=== PATIENT | male | born 1995 | race Caucasian/White ===

== ENCOUNTER 2020-02-19 11:34 | Emergency (ER) | payer OTHER, SELFPAY ==
[2020-02-19 12:11] VITALS: BP 119/62; PULSE 90; RESP 16; TEMP 36.4; O2SAT 100
--- NOTE | 2020-02-19 12:34 | ED.MALEGU ---
HPI - Male Genitourinary General Chief complaint: Urogenital-Male Stated complaint: STD Time Seen by Provider: 02/19/20 12:35 Source: patient and RN notes reviewed Mode of arrival: ambulatory Limitations: no limitations History of Present Illness HPI Narrative: This is a 24 years old male presents to the office for a concern of STD. Symptoms began yesterday with penile discharge, described as white thick and foul odor. He is sexually active with numerous partner. Denies history of STD in the past. Report unprotected sex. Related Data Allergies Allergy/AdvReac Type Severity Reaction Status Date / Time No Known Allergies Allergy Unknown Unverified 07/22/15 11:37 Review of Systems Review of Systems: Narrative: CONSTITUTIONAL: Denies fever or bodyaches ENT: Denies congestion CARDIOVASCULAR: Denies chest pain RESPIRATORY: Denies dyspnea GASTROINTESTINAL: Denies abdominal pain, nausea, vomiting GENITOURINARY: Denies genital lesions SKIN: Denies rash MUSCULOSKELETAL: Denies acute back pain/joints pain NEUROLOGIC: Denies lightheaded/numbness All other systems reviewed are negative, except as documented in HPI. [facility] Family History Family History Sibling Family history of mental disorder Patient's sister is in good health Mother Patient's mother is in good health Father Patient's father is in good health Social History Social History Smoking status: Never smoker Alcohol intake: never Gender identity (if verbalized by the patient): Male Comments At time of signature, I agree with nursing past medical, surgical, social and family history. There is no relevant family history pertinent to the presenting complaint. Exam Narrative: Exam Narrative: GENERAL: This is a well-nourished, well-developed patient, in no apparent distress. CARDIOVASCULAR: Regular rate and rhythm without murmurs, gallops, or rubs. RESPIRATORY: Clear to auscultation. Breath sounds equal bilaterally. No wheezes, rales, or rhonchi. GASTROINTESTINAL: Abdomen soft, non-tender, nondistended. Bowel sounds are active. No hepato-splenomegaly, or palpable masses. No guarding. SKIN: warm, intact with no suspicious lesions or rash, good texture and turgor. NEURO: awake, alert, and oriented to person, place and time. There were no obvious focal neurologic abnormalities. Steady gait Clif Coma Scale Eye Opening: Spontaneous 4 [place] Coma Scale Motor: Obeys Commands 6 Clif Coma Scale Verbal: Oriented 5 Course Vital Signs Vital signs: Vital Signs Temperature 97.5 F L 02/19/20 12:11 Pulse Rate 90 02/19/20 12:11 Respiratory Rate 16 02/19/20 12:11 Blood Pressure 119/62 02/19/20 12:11 Pulse Oximetry 100 02/19/20 12:11 Temperature 97.5 F L 02/19/20 12:11 Pulse Rate 90 02/19/20 12:11 Respiratory Rate 16 02/19/20 12:11 Blood Pressure 119/62 02/19/20 12:11 Pulse Oximetry 100 02/19/20 12:11 MDM - Male Genitourinary MDM Narrative Medical decision making narrative: Discharge instructions reviewed with patient, as well as provided in writing per nursing staff. The instructions also include specific and strict return/GO TO THE ER as well as f/u information. All questions have been answered, and the patient deny any further questions with discharge and discharge plan. Differential Diagnosis Differential diagnosis: Likely urinary tract infection, urethritis, epididymitis and genital herpes simplex Critical Care Time Critical Care Time Critical Care Time: No Discharge Plan Discharge Clinical Impression: Discharge from penis, Concern about STD in male without diagnosis Patient Disposition: Home, Self-Care Condition: Stable Instructions: Antibiotic Form, Sexually Transmitted Diseases (ED) Additional Instructions: Azithromycin and ceftriaxone were given to you today to cover you for gonorr
[2020-02-19] MEDS: AZITHROMYCIN 250 MG TABLET 1000 MG PO (12:53)
[2020-02-19] MEDS: cefTRIAXone 250 MG VIAL IM (12:54)
[2020-02-19] MEDS: LIDOCAINE HCL 1% LOCAL INJ 20 ML VIAL IM (12:54)
== END 2020-02-19 13:15 | disposition home or self-care (01) ==
PROVIDERS: Emergency Provider Nurse Practitioner
DX: R36.9 Urethral discharge, unspecified (principal); Z11.3 Encounter for screening for infections with a predominantly sexual mode of transmission
CPT/HCPCS: 87491; 87591; 87661; 96372; 99213; A9270; G0463; J0696

== ENCOUNTER 2021-08-27 13:43 | Emergency (ER) | payer OTHER, SELFPAY ==
[2021-08-27 13:50] VITALS: BP 121/66; PULSE 85; RESP 16; TEMP 36.9; O2SAT 99
--- NOTE | 2021-08-27 14:03 | ED.LOWEXIN ---
HPI - Extremity Injury (Lower) General Chief Complaint: Extremity Injury, Lower Stated Complaint: Left ankle Pain Time Seen by Provider: 08/27/21 13:55 Source: patient and RN notes reviewed Mode of arrival: ambulatory Limitations: no limitations History of Present Illness HPI Narrative: 25-year-old male presents with concern for left ankle pain. Reports pain started 10 days ago. He denies any injury. 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 Reports no pain at rest, pain with flexion and certain ranges of motion while walking. He reports he has been taking ibuprofen once a day. He denies open skin, redness, swelling MD complaint: ankle injury Related Data Allergies Allergy/AdvReac Type Severity Reaction Status Date / Time No Known Allergies Allergy Unknown Unverified 07/22/15 11:37 Review of Systems Review of Systems: CONSTITUTIONAL: Denies malaise, chills, sweats, or fever. SKIN: Denies rash or itching, open skin, laceration, abrasion, redness, warmth, swelling. MUSCULOSKELETAL: Reports left ankle pain NEUROLOGIC: Denies numbness, weakness All systems reviewed & are unremarkable except as noted in HPI and below PMFSH Family History Family History Sibling Family history of mental disorder Patient's sister is in good health Mother Patient's mother is in good health Father Patient's father is in good health Social History Social History Smoking status: Never smoker Alcohol intake: never Gender identity (if verbalized by the patient): Male Comments At time of signature, agree with nursing past medical, surgical, social and family history. There is no relevant family history pertinent to the presenting complaint Exam Narrative: GENERAL: Well-appearing, well-nourished, and in no acute distress. HEAD: Normocephalic, atraumatic. EYES: PERRLA, conjunctivae clear NECK: Supple. CHEST: Speaks in full sentences. No respiratory distress. HEART: Regular rate and rhythm. Normal and equal peripheral pulses. EXTREMITIES: Left ankle, foot, digits have has normal strength and sensation, normal range of motion. No edema or ecchymosis. 5/5 strength with ankle left flexion and extension. Normal sensation with sensitivity to light touch and pain. No point tenderness. No open wounds, no skin tenting, no devitalized tissue or atrophy, no trophic changes, no obvious deformity, alignment normal, nearby joints and structures intact. Distal pulses palpable and equal bilaterally, skin warm, dry, pink. Capillary refill less than 3 seconds. SKIN: Warm, dry, no rash. NEURO: Alert and oriented x3. PSYCH: Normal mood and affect Course Course Emergency Course: Patient is aware of diagnosis, understands and agrees to treatment plan. Anticipatory guidance given. Patient agrees to follow-up as directed and is aware of reasons to seek care at the emergency department. Portions of this record may have been created with voice recognition software Level of Care: Express Care Visit Vital Signs Vital signs: Vital Signs Temperature 98.4 F 08/27/21 13:50 Pulse Rate 85 08/27/21 13:50 Respiratory Rate 16 08/27/21 13:50 Blood Pressure 121/66 08/27/21 13:50 Pulse Oximetry 99 08/27/21 13:50 Temperature 98.4 F 08/27/21 13:50 Pulse Rate 85 08/27/21 13:50 Respiratory Rate 16 08/27/21 13:50 Blood Pressure 121/66 08/27/21 13:50 Pulse Oximetry 99 08/27/21 13:50 Reviewed. MDM - Extremity Injury (Lower) MDM Narrative Medical decision making narrative: Patients injury and pain is consistent with musculoskeletal etiology. No signs of neurological or vascular compromise on exam. Compartments and tissues are soft without signs of compartment syndrome. Pain is felt appropriate for further evaluation on an outpatient basis. Critical Care Time Critical Care
== END 2021-08-27 14:07 | disposition home or self-care (01) ==
PROVIDERS: Emergency Provider Nurse Practitioner
DX: M76.62 Achilles tendinitis, left leg (principal)
CPT/HCPCS: 99213; G0463

== ENCOUNTER 2022-02-03 19:17 | Emergency (ER) | payer OTHER, SELFPAY ==
[2022-02-03 19:27] VITALS: BP 116/66; PULSE 93; RESP 16; TEMP 36.9; O2SAT 99
[2022-02-03 19:36] VITALS: BP 116/66; PULSE 93; RESP 16; TEMP 36.9; O2SAT 99
--- NOTE | 2022-02-03 19:41 | ED.LOWEXIN ---
HPI - Extremity Injury (Lower) General Chief Complaint: Extremity Injury, Lower Stated Complaint: right foot pain Time Seen by Provider: 02/03/22 19:22 Source: patient Mode of arrival: ambulatory Limitations: no limitations History of Present Illness HPI Narrative: 26-year-old male presented for complaint of right foot pain for about 3 days, endorses redness between the first and second toe noted today. Denies recent injury. He states over a month ago he cut his foot with a piece of metal, and says that wound healed. Since then he has been concerned that something has remained in that foot, and he has used tweezers to attempt to remove any objects. Endorses small open area between the first and second toe as a result. Unsure of last tetanus. Denies numbness, tingling, weakness of the foot. Endorses significant alcohol consumption, but denies tenderness over the MTP joint. Related Data Allergies Allergy/AdvReac Type Severity Reaction Status Date / Time No Known Allergies Allergy Unknown Unverified 07/22/15 11:37 Review of Systems Review of Systems: CONSTITUTIONAL: Denies body aches, fever, chills, or sweats. CARDIOVASCULAR: Denies chest pain, palpitations, or edema. RESPIRATORY: Denies cough or dyspnea. GASTROINTESTINAL: Denies abdominal pain, nausea, vomiting, or diarrhea. SKIN: reports wound and redness right foot MUSCULOSKELETAL: Denies back pain, joint pain, or myalgia. NEUROLOGIC: Denies headache, numbness, tingling, or weakness. REPLACED BY [facility] Family History Family History Sibling Family history of mental disorder Patient's sister is in good health Mother Patient's mother is in good health Father Patient's father is in good health Social History Social History Smoking status: Never smoker Alcohol intake: never Gender identity (if verbalized by the patient): Male Comments At time of signature, I have reviewed and agree with nursing past medical, surgical, social and family history unless otherwise noted. Please see nursing chart for further information. There is no relevant family history pertinent to the presenting complaint Exam Narrative: GENERAL: Well-appearing, unkempt ENT: Mucous membranes moist. Oropharynx without edema, erythema or lesions. CHEST: Clear to auscultation. No respiratory distress. HEART: Regular rate and rhythm. SKIN: Warm, dry. Erythema and mild swelling between 1st and second toe right foot, spreads to approx 2.5cm dorsal surface of foot, tender with palpation, no active drainage or fluctuance. Skin to plantar surface of foot is thick and scaly. NEURO: Alert and oriented x3. PSYCH: Normal mood and affect Course Course Emergency Course: Patient is aware of diagnosis, understands and agrees to treatment plan. Anticipatory guidance given. Patient agrees to follow-up as directed and is aware of reasons to seek care at the emergency department. Portions of this record may have been created with voice recognition software Level of Care: Express Care Visit Vital Signs Vital signs: Vital Signs Temperature 98.5 F 02/03/22 19:27 Pulse Rate 93 02/03/22 19:27 Respiratory Rate 16 02/03/22 19:27 Blood Pressure 116/66 02/03/22 19:27 Pulse Oximetry 99 02/03/22 19:27 Oxygen Delivery Room Air 02/03/22 19:27 Temperature 98.5 F 02/03/22 19:36 Pulse Rate 93 02/03/22 19:36 Respiratory Rate 16 02/03/22 19:36 Blood Pressure 116/66 02/03/22 19:36 Pulse Oximetry 99 02/03/22 19:36 Oxygen Delivery Room Air 02/03/22 19:36 Reviewed MDM - Extremity Injury (Lower) MDM Narrative Medical decision making narrative: Tetanus is updated. Antibiotic prescribed for cellulitis. Advised supportive measures and signs/symptoms to go to the ER. Pt is appropriate for outpt treatment and f/u. Differential Diagnosis Differential diagnosis: Likely ot
[2022-02-03] MEDS: TETANUS,DIPHTHERIA,AC PERTUSSIS ADULT (0.5 ML) BOOSTRIX IM (19:55)
== END 2022-02-03 20:09 | disposition home or self-care (01) ==
PROVIDERS: Emergency Provider Nurse Practitioner Family
DX: L03.115 Cellulitis of right lower limb (principal); Z23 Encounter for immunization
CPT/HCPCS: 90471; 90715; 99213; G0463

== ENCOUNTER 2024-01-15 10:22 | Emergency (ER) | payer BC, OTHER, SELFPAY ==
[2024-01-15 10:35] VITALS: BP 102/64; PULSE 90; RESP 16; TEMP 37; O2SAT 100
[2024-01-15] MEDS: FLUORESCEIN SOD 1 MG/STRIP LEFT EYE (11:08)
[2024-01-15] MEDS: TETRACAINE HCL 0.5% OPHTH SOLN 4 ML BTL 1 DROP LEFT EYE (11:08)
[2024-01-15] MEDS: DACRIOSE EYE IRRIGATION 118 ML BOTTLE 10 ML LEFT EYE (11:08)
--- NOTE | 2024-01-15 11:32 | ED.EYEPROB ---
HPI - Eye Problem General Chief complaint: Eye Problems Stated complaint: Left Eye Irritation Time Seen by Provider: 01/15/24 11:04 Source: patient and RN notes reviewed Mode of arrival: ambulatory Limitations: no limitations History of Present Illness HPI Narrative: Patient presents today complaining of foreign body sensation to the left eye. Patient was grinding some metal for his car yesterday at home when he felt a piece of metal go into his eye. Denies vision changes, but does report photophobia. He has not tried to flush his eye out since onset of symptoms. He does not wear contacts or glasses. Related Data Home Medications Medication Instructions Recorded Confirmed No Home Medications 01/15/24 01/15/24 Allergies Allergy/AdvReac Type Severity Reaction Status Date / Time No Known Allergies Allergy Unknown Verified 01/15/24 10:31 Review of Systems Review of Systems: CONSTITUTIONAL: Denies body aches, fever, chills, or sweats. EYES: Denies visual changes, redness, or discharge. + left foreign body sensation, photophobia ENT: Denies rhinorrhea, congestion, sore throat, or otalgia. CARDIOVASCULAR: Denies chest pain, palpitations, or edema. RESPIRATORY: Denies cough or dyspnea. GASTROINTESTINAL: Denies abdominal pain, nausea, vomiting, or diarrhea. GENITOURINARY: Denies dysuria or hematuria. SKIN: Denies rash, itching, or wounds. MUSCULOSKELETAL: Denies back pain, joint pain, or myalgia. NEUROLOGIC: Denies headache, numbness, tingling, or weakness. PSYCH: Denies depression or anxiety. [facility] Family History Family History Sibling Family history of mental disorder Patient's sister is in good health Mother Patient's mother is in good health Father Patient's father is in good health Social History Social History Smoking status: Never smoker Alcohol intake: never Gender identity (if verbalized by the patient): Male Comments At time of signature, I have reviewed and agree with nursing past medical, surgical, social and family history unless otherwise noted. Please see nursing chart for further information. There is no relevant family history pertinent to the presenting complaint Exam Narrative: GENERAL: Well-appearing, well-nourished, and in no acute distress. HEAD: Normocephalic, atraumatic. EYES: EOMI. PERRL. Right eye normal. Left eye: injected conjunctiva. +fluorescein uptake with foreign body in center. See procedure note. ENT: Mucous membranes pink and moist. NECK: Normal AROM. CHEST: No respiratory distress. EXTREMITIES: Normal range of motion. No edema. SKIN: Warm, dry, no rash. Capillary refill normal. Normal skin turgor. NEURO: No focal deficits. Alert and oriented x3. Gait steady. PSYCH: Normal affect. No signs of depression or anxiety. Course Course Level of Care: Express Care Visit Vital Signs Vital signs: Vital Signs Temperature 98.6 F 01/15/24 10:35 Pulse Rate 90 01/15/24 10:35 Respiratory Rate 16 01/15/24 10:35 Blood Pressure 102/64 01/15/24 10:35 Pulse Oximetry 100 01/15/24 10:35 Oxygen Delivery Room Air 01/15/24 10:35 Temperature 98.6 F 01/15/24 10:35 Pulse Rate 90 01/15/24 10:35 Respiratory Rate 16 01/15/24 10:35 Blood Pressure 102/64 01/15/24 10:35 Pulse Oximetry 100 01/15/24 10:35 Oxygen Delivery Room Air 01/15/24 10:35 Reviewed Transfer Transfered to: John Transportation: Other (Private vehicle) Transfer rationale: Embedded foreign body left cornea. Accepting physician: William Laguerre Other Procedure Procedure 1: Other Procedure: Left eye was anesthetized with 1 drop of tetracaine and anesthesia was achieved. The eye was flushed with eye wash. Lid was inverted and examined. Moistened Qtip was used to sweep underneath the upper eyelid with 1 foreign b
== END 2024-01-15 11:35 | disposition short-term general hospital (02) ==
PROVIDERS: Emergency Provider Nurse Practitioner
DX: T15.02XA Foreign body in cornea, left eye, initial encounter (principal); W44.9XXA Unspecified foreign body entering into or through a natural orifice, initial encounter
CPT/HCPCS: 65220; 99213; A9270; G0463

== ENCOUNTER 2024-01-15 12:16 | Emergency (ER) | payer BC, OTHER, SELFPAY ==
[2024-01-15 12:28] VITALS: BP 119/67; PULSE 73; RESP 18; TEMP 36.7; O2SAT 100
--- NOTE | 2024-01-15 14:12 | ED.EYEPROB ---
HPI - Eye Problem General Chief complaint: Eye Problems Stated complaint: foreign body to eye Time Seen by Provider: 01/15/24 13:07 History of Present Illness HPI Narrative: Pt was grinding metal yesterday and later developed pain in left eye. [facility] went [facility] and FB noted in left eye and sent to ER. Pt complains of pain and tearing to left eye. Related Data Home Medications Medication Instructions Recorded Confirmed No Home Medications 01/15/24 01/15/24 Allergies Allergy/AdvReac Type Severity Reaction Status Date / Time No Known Allergies Allergy Unknown Verified 01/15/24 10:31 Review of Systems Review of Systems: All systems reviewed & are unremarkable except as noted in HPI and below PMFSH Family History Family History Sibling Family history of mental disorder Patient's sister is in good health Mother Patient's mother is in good health Father Patient's father is in good health Social History Social History Smoking status: Never smoker Alcohol intake: never Gender identity (if verbalized by the patient): Male Exam Const: General: healthy appearing and no acute distress Nutritional Appearance: well nourished Orientation/consciousness: patient oriented x3 Limitations: no limitations HENMT: Head: normal to inspection Eyes: Conjunctivae: conjunctival abnormality left conjunctival injection and other (metalic FB 4 o'clock position over iris. no fluoresceine uptake) Pupils: Equal, round and reactive pupils present EOM: EOMs intact bilaterally Direct Ophthalmoscopy: photophobia Course Vital Signs Vital signs: Vital Signs Temperature 98.1 F 01/15/24 12:28 Pulse Rate 73 01/15/24 12:28 Respiratory Rate 18 01/15/24 12:28 Blood Pressure 119/67 01/15/24 12:28 Pulse Oximetry 100 01/15/24 12:28 Oxygen Delivery Room Air 01/15/24 12:28 Temperature 98.1 F 01/15/24 12:28 Pulse Rate 73 01/15/24 12:28 Respiratory Rate 18 01/15/24 12:28 Blood Pressure 119/67 01/15/24 12:28 Pulse Oximetry 100 01/15/24 12:28 Oxygen Delivery Room Air 01/15/24 12:28 Procedures FB Removal Eye Foreign Body #1: Time Out performed: Yes Location: eye (L) Topical anesthetic used: tetracaine Foreign body: metal Evidence of corneal penetration: No Technique: cotton tip swab and needle Procedure performed under: slit-lamp Patient tolerated procedure: well Complications: incomplete foreign body removal Foreign Body Removal Narrative: part of FB removed with insulin needle but some remained deeper. not comfortable going any deeper with equipent. MDM - Eye Problem MDM Narrative Medical decision making narrative: metalic FB partially removed. not comfortable digging any deeper. [facility] [employer] contacted. pt can call and they will get him a follow up for complete FB removal. Discharge Plan Discharge Clinical Impression: Acute foreign body of cornea Patient Disposition: Home, Self-Care Condition: Stable Instructions: Antibiotic Form, Eye Foreign Body (ED) Additional Instructions: call [phone] for appointment. Option 1 will get person I talked with about you. They will get you and appointment for removal of the remainer of the metalic foreign body. Prescriptions: No Action No Home Medications Follow-up/Referrals: UNKNOWN,DOCTOR [Primary Care Provider] -
== END 2024-01-15 14:37 | disposition home or self-care (01) ==
PROVIDERS: Emergency Provider Emergency Medicine
DX: T15.02XA Foreign body in cornea, left eye, initial encounter (principal); W44.E0XA Non-magnetic metal object unspecified, entering into or through a natural orifice, initial encounter
CPT/HCPCS: 65220; 99282; A9270

== ENCOUNTER 2024-07-10 14:08 | Emergency (ER) | payer OTHER, BC, SELFPAY ==
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
[2024-07-10 14:11] VITALS: BP 126/78; PULSE 63; RESP 15; TEMP 36.5; O2SAT 99
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
[2024-07-10] MEDS: ORPHENADRINE CITRATE 100 MG TABLET.ER PO (15:38)
[2024-07-10] MEDS: IBUPROFEN 400 MG TABLET 800 MG PO (15:38)
[2024-07-10] MEDS: ACETAMINOPHEN 500 MG TABLET 1000 MG PO (15:38)
[2024-07-10 16:34] VITALS: BP 140/72; PULSE 74; RESP 18; O2SAT 98
== END 2024-07-10 16:35 | disposition home or self-care (01) ==
PROVIDERS: Emergency Provider Physician Assistant
DX: S39.012A Strain of muscle, fascia and tendon of lower back, initial encounter (principal); V49.9XXA Car occupant (driver) (passenger) injured in unspecified traffic accident, initial encounter
CPT/HCPCS: 72040; 72100; 73030; 99284; A9270

== ENCOUNTER 2025-03-28 14:06 | Emergency (ER) | payer OTHER, SELFPAY ==
[2025-03-28 14:16] VITALS: BP 119/69; PULSE 64; RESP 18; TEMP 36.8; O2SAT 97
--- NOTE | 2025-03-28 14:36 | ED_ITS ---
HPI - Dental/Oral General Chief complaint: Dental/Oral Stated complaint: Ears Irritation/Dental Pain Time Seen by Provider: 03/28/25 14:28 Source: patient Mode of arrival: ambulatory Limitations: no limitations History of Present Illness HPI Narrative: 29-year-old male presents with his sore right lower dental pain that is causing right ear pain. He reports several day history of pain. Reports history of bad teeth. Denies fever. MD Complaint: tooth pain Related Data Allergies Allergy/AdvReac Type Severity Reaction Status Date / Time No Known Allergies Allergy Unknown Verified 03/28/25 14:38 Review of Systems Review of Systems: CONSTITUTIONAL: Denies malaise, chills, sweats, or fever. EYES: Denies visual changes ENT: Denies rhinorrhea, congestion, sinus pain, or sore throat. Reports right lower dental pain and right ear pain CARDIOVASCULAR: Denies chest pain, palpitations RESPIRATORY: Denies cough or dyspnea. SKIN: Denies rash or itching. MUSCULOSKELETAL: Denies myalgia. NEUROLOGIC: Denies numbness, weakness, or headache. All systems reviewed & are unremarkable except as noted in HPI and below PMFSH Family History Family History Sibling Family history of mental disorder Patient's sister is in good health Mother Patient's mother is in good health Father Patient's father is in good health Social History Social History Smoking status: Never smoker Alcohol intake: never Gender identity (if verbalized by the patient): Male Comments At time of signature, agree with nursing past medical, surgical, social and fa lady history. There is no relevant family history pertinent to the presenting complaint Exam Narrative: GENERAL: Well-appearing, well-nourished, and in no acute distress. HEAD: Normocephalic, atraumatic. EYES: PERRLA, sclera clear ENT: Nares clear, turbinates pink, no rhinorrhea or epistaxis. Mucous membranes moist. TM pearly dupont with sharp light reflex bilaterally; no tragal tenderness. Oropharynx without erythema or lesions. Tonsils not enlarged and without exudate. Missing teeth, broken teeth, caries noted NECK: Supple. No lymphadenopathy. CHEST: No respiratory distress. Speaks in full sentences. HEART: Regular rate and rhythm. SKIN: Warm, dry, no visible rash. NEURO: Alert and oriented x3. PSYCH: Normal mood and affect Course Course Emergency Course: Patient is aware of diagnosis, understands and agrees to treatment plan. Anticipatory guidance given. Patient agrees to follow-up as directed and is aware of reasons to seek care at the emergency department. Portions of this record may have been created with voice recognition software Level of Care: Express Care Visit Vital Signs Vital signs: Vital Signs Temperature 98.3 F 03/28/25 14:16 Pulse Rate 64 03/28/25 14:16 Respiratory Rate 18 03/28/25 14:16 Blood Pressure 119/69 03/28/25 14:16 Pulse Oximetry 97 03/28/25 14:16 Oxygen Delivery Room Air 03/28/25 14:16 Temperature 98.3 F 03/28/25 14:16 Pulse Rate 64 03/28/25 14:16 Respiratory Rate 18 03/28/25 14:16 Blood Pressure 119/69 03/28/25 14:16 Pulse Oximetry 97 03/28/25 14:16 Oxygen Delivery Room Air 03/28/25 14:16 Reviewed. MDM - Dental/Oral MDM Narrative Medical decision making narrative: I evaluated this in the [facility] care. History is obtained from patient who is an independent historian and physical exam was performed.? Available medical records were reviewed. ? Exam findings and relevant testing show no acute concerns or changes; patient is non-toxic appearing and is in no distress. Patients pain and complaint coupled with physical findings are consistant with dentalgia. There are no focal signs of space occupying lesions that are compromising to the airway; no dysphagia, odynophagia, dysphonia, or dyspnea. No uvular deviation or soft palate edema. Patient is non-toxic appearing. The floor of the mouth is soft with no signs of Pj's Angina; no induration below mandible, no neck pain. Patient is without trismus or drooling and able to swallow secretions. Patient is felt appropriate for discharge home with dental follow up. ? Differential diagnosis and treatment plan were discussed with the patient. Patient agrees with discussion and after shared medical decision making agrees with plan of care. All questions were answered to the patient's satisfaction. Patient is appropriate for outpatient treatment and follow-up. Differential Diagnosis Differential diagnosis: Likely gingival abscess, dental caries, toothache, dental abscess, fracture of tooth and aphthous ulcer Critical Care Time Critical Care Time Critical Care Time: No Discharge Plan Discharge Clinical Impression: Toothache Patient Disposition: Home Condition: Stable Instructions: Antibiotic Form, Toothache (ED) Additional Instructions: Take antibiotic as directed Avoid temperature extremes May apply heat or ice to the face Gentle brushing and flossing Take 2 extra strength Tylenol, 4 ibuprofen, 80 mg of caffeine at same time. You can do this every 6 hours. Do not do this for more than 2 - 3 days. You can substitute 25 mg Benadryl at nighttime for caffeine to help you sleep. Do this for no more than 3 days. Follow-up with the dentist as soon as possible - see the list provided Patient Language: Citizen Of [place] Prescriptions: New ibuprofen 800 mg tablet 800 mg PO Q6H PRN (Reason: pain) Qty: 30 0RF amoxicillin-pot clavulanate 875-125 mg tablet 1 tablet PO Q12H 10 Days Qty: 20 0RF Follow-up/Referrals: PHYSICIAN,PATTERN WORKER [Primary Care Provider] - Time of Disposition: 14:38
== END 2025-03-28 14:45 | disposition home or self-care (01) ==
PROVIDERS: Emergency Provider Nurse Practitioner
DX: K08.89 Other specified disorders of teeth and supporting structures (principal)
CPT/HCPCS: 99213; G0463